=== PATIENT | male | born 1955 | race Caucasian/White ===

== ENCOUNTER 2020-07-05 13:02 | Observation (INO) | payer MEDICARE ==
[~2020-07-05] VITALS: Ht 172.7 cm; Wt 74.6 kg
[~2020-07-05 13:02] MED LIST: FLUO20CA19 PO; TRAM50TA2 PO
[2020-07-05] MEDS ORDERED: CHLORHEXIDINE 15 ML UDC MM STA (13:15)
[2020-07-05] MEDS ORDERED: CHLORHEXIDINE 15 ML UDC ONE (13:26)
[2020-07-05] MEDS ORDERED: LACTATED RINGERS 1,000 ML IV SCH (13:30)
[2020-07-05 14:56] LABS: ALANINE AMINOTRANSFERASE 25 U/L (12-78); ALBUMIN 3.7 g/dL (3.4-5.0); ANION GAP 10 mmol/L (5-15); CALCIUM 9.3 mg/dL (8.5-10.1); CHLORIDE 107 mmol/L (98-107); CREATININE 0.66 mg/dL (0.7-1.3)
[2020-07-05 14:58] LABS: ALKALINE PHOSPHATASE 163 U/L (45-117); BILIRUBIN,TOTAL 1.6 mg/dL (0.2-1.0); TOTAL PROTEIN 7.4 g/dL (6.4-8.2)
[2020-07-05] MEDS ORDERED: FENTANYL PF 250 MCG/5ML ONE (16:20)
[2020-07-05] MEDS ORDERED: TRANEXAMIC ACID 100 MG/ML, 10ML ONE ×2 (16:33→17:12)
[2020-07-05] MEDS ORDERED: CLINDAMYCIN 150 MG/ML, 6ML ONE (16:33)
[2020-07-05] MEDS ORDERED: SUCCINYLCHOLINE 20 MG/ML, 10ML ONE (16:56)
[2020-07-05] MEDS ORDERED: ONDANSETRON 2MG/ML, 2ML ONE (16:56)
[2020-07-05] MEDS ORDERED: CEFAZOLIN 1,000 MG ONE (16:56)
[2020-07-05] MEDS ORDERED: LIDOCAINE-MPF 2% ,5ML ONE (16:56)
[2020-07-05] MEDS ORDERED: PROPOFOL 10 MG/ML, 20ML ONE (16:56)
[2020-07-05] MEDS ORDERED: KETOROLAC 30 MG/1 ML ONE (16:56)
[2020-07-05] MEDS ORDERED: DEXAMETHASONE 4 MG/ML, 1ML ONE (16:56)
[2020-07-05] MEDS ORDERED: PHENYLEPHRINE 10 MG/ML ONE (17:09)
[2020-07-05] MEDS ORDERED: BUPIVACAINE/PF 0.5% ONE (18:15)
[2020-07-05] MEDS ORDERED: EPHEDRINE 50 MG/ML, 1ML IVPush PRN (19:30)
[2020-07-05] MEDS ORDERED: morphine SULFATE 10 MG/ML, 1ML IVPush PRN (19:30)
[2020-07-05] MEDS ORDERED: OXYcodone 5 MG/5 ML ORAL.SOL UDC PO PRN (19:30)
[2020-07-05] MEDS ORDERED: ONDANSETRON 2MG/ML, 2ML IVPush PRN (19:30)
[2020-07-05] MEDS ORDERED: ACETAMINOPHEN 325 MG TABLET PO PRN (19:30)
[2020-07-05] MEDS ORDERED: FENTANYL PF 100 MCG/2ML IV PRN (19:30)
[2020-07-05] MEDS ORDERED: hydrALAzine 20 MG/ML, 1ML IV PRN (19:30)
[2020-07-05] MEDS ORDERED: LABETALOL 5MG/ML, 20ML IV PRN (19:30)
[2020-07-05] MEDS ORDERED: LACTATED RINGERS 1,000 ML IVBOLUS ONE (19:30)
[2020-07-05] MEDS ORDERED: PROMETHAZINE 25 MG/ML, 1ML IVPush PRN (19:30)
[2020-07-05] MEDS ORDERED: HYDROmorphone 1 MG/ML, 1ML INJ IVPush PRN (19:30)
[2020-07-05 21:00] VITALS: BP 128/88
[2020-07-05] MEDS: CARVEDILOL 3.125 MG TABLET PO SCH (21:54)
[2020-07-05] MEDS ORDERED: TRAM50TA2 PO (22:19)
[2020-07-05] MEDS ORDERED: CARV3.12 PO (22:19)
[2020-07-05] MEDS ORDERED: METH10TA3 PO (22:19)
[2020-07-05] MEDS ORDERED: NITR0.6T4 SL (22:19)
[2020-07-05] MEDS ORDERED: ONDANSETRON 2MG/ML, 2ML IV PRN (22:30)
[2020-07-05] MEDS ORDERED: OXYcodone/APAP 5/325MG TABLET PO PRN (22:30)
[2020-07-05] MEDS ORDERED: HYDROmorphone 2 MG/ML, 1ML IVPush PRN (22:30)
[2020-07-05] MEDS ORDERED: POTASSIUM CHLORIDE 40 MEQ in D5%-0.45% NACL 1,000 ML IV SCH (22:30)
[2020-07-06] MEDS: CEFAZOLIN PMX 1GM/50ML 50 ML IVPB SCH ×2 (00:06→07:59)
[2020-07-06 01:20] VITALS: BP 118/84
[2020-07-06 04:15] VITALS: BP 129/90
[2020-07-06] MEDS: CARVEDILOL 3.125 MG TABLET PO SCH (06:36)
[2020-07-06 07:36] VITALS: BP 142/92
[2020-07-06] MEDS ORDERED: SODIUM CHLORIDE FLUSH 10ML SYR IVF SCH (09:00)
[2020-07-06] MEDS ORDERED: OXYC5TAB98 PO (12:16)
== END 2020-07-06 13:16 | disposition home or self-care (01) ==
LOC: OUT 13:02 → 4NE 21:20 → OUT 23:06 → 4NE 23:07 → DCLOUNGE 07-06 13:05
PROVIDERS: ADMIT Orthopaedic Surgery; ATTEND Orthopaedic Surgery
DX: S42.202P Unspecified fracture of upper end of left humerus, subsequent encounter for fracture with malunion (principal); M19.012 Primary osteoarthritis, left shoulder; M19.112 Post-traumatic osteoarthritis, left shoulder; Z79.899 Other long term (current) drug therapy; X58.XXXD Exposure to other specified factors, subsequent encounter
CPT/HCPCS: 23430; 23472; 36415; 80053; 96365; 96366; C1713; C1776; G0378; J0330; J0690; J1100; J1885; J2370; J2405; J2704; J3010; J3480; J3490; J7120; S0020; S0077